=== PATIENT | male | born 1960 | race Caucasian/White ===

== ENCOUNTER 2019-11-30 10:24 | Emergency (ER) | payer BC, SELFPAY ==
[2019-11-30 10:42] VITALS: BP 144/86; PULSE 70; RESP 16; TEMP 36.5; O2SAT 100
--- NOTE | 2019-11-30 10:49 | ED.EYEPROB ---
HPI - Eye Problem General Chief complaint: Eye Problems Stated complaint: left eyelid swollen Time Seen by Provider: 11/30/19 10:49 Source: patient and family Mode of arrival: ambulatory Limitations: no limitations History of Present Illness HPI Narrative: This is a 59 years old male presented office for evaluation of left eyelid swelling for 2-day. He thought there was something in his eye yesterday so he wrapped it and use a Q-tip to try to remove it out but he did not see anything. He woke up this morning noticed his left upper eyelid swelling has gotten a little bigger. Denies visual change, matted eyelashes, or blurry vision. He does not wear contact lense. Denies direct trauma or injury. He is not diabetic. Related Data Allergies Allergy/AdvReac Type Severity Reaction Status Date / Time poison darren extract Allergy Rash Verified 11/30/19 10:54 poison oak extract Allergy Rash Verified 11/30/19 10:54 poison sumac extract Allergy Rash Verified 11/30/19 10:54 Review of Systems Review of Systems: Narrative: CONSTITUTIONAL: Denies fever or feeling ill ENT: Denies congestion. CARDIOVASCULAR: Denies chest pain RESPIRATORY: Denies dyspnea GASTROINTESTINAL: Denies nausea, vomiting SKIN: Denies rash MUSCULOSKELETAL: Denies acute back pain NEUROLOGIC: Denies lightheaded PMFSH Social History Social History Gender identity (if verbalized by the patient): Male Comments At time of signature, I agree with nursing past medical, surgical, social and family history. There is no relevant family history pertinent to the presenting complaint. Exam Narrative: Exam Narrative: GENERAL: This is a well-nourished, well-developed patient, in no apparent distress. EYES: PERRL. EMOI. Sclera clear/white. Left upper corner eyelid noted nodule with tenderness and erythema. No obvious foreign body noted. Vision is grossly intact. NECK: Neck supple, non-tender without lymphadenopathy, masses or thyromegaly. CARDIOVASCULAR: Regular rate and rhythm without murmurs, gallops, or rubs. RESPIRATORY: Clear to auscultation. Breath sounds equal bilaterally. No wheezes, rales, or rhonchi. GASTROINTESTINAL: Abdomen soft, non-tender, nondistended. Bowel sounds are active. No guarding. SKIN: warm, intact with no suspicious lesions or rash, good texture and turgor. NEURO: awake, alert, and oriented to person, place and time. There were no obvious focal neurologic abnormalities. Steady gait [place] Coma Scale Eye Opening: Spontaneous 4 [place] Coma Scale Motor: Obeys Commands 6 [place] Coma Scale Verbal: Oriented 5 Course Vital Signs Vital signs: Vital Signs Temperature 97.7 F 11/30/19 10:42 Pulse Rate 70 11/30/19 10:42 Respiratory Rate 16 11/30/19 10:42 Blood Pressure 144/86 H 11/30/19 10:42 Pulse Oximetry 100 11/30/19 10:42 Temperature 97.7 F 11/30/19 10:42 Pulse Rate 70 11/30/19 10:42 Respiratory Rate 16 11/30/19 10:42 Blood Pressure 144/86 H 11/30/19 10:42 Pulse Oximetry 100 11/30/19 10:42 MDM - Eye Problem MDM Narrative Medical decision making narrative: Discharge instructions reviewed with patient, as well as provided in writing per nursing staff. The instructions also include specific and strict return/GO TO THE ER as well as f/u information. All questions have been answered, and the patient deny any further questions with discharge and discharge plan. Differential Diagnosis Differential diagnosis: Likely corneal abrasion, conjunctivitis, acute iritis and periorbital cellulitis Critical Care Time Critical Care Time Critical Care Time: No Discharge Plan Discharge Clinical Impression: Hordeolum external Qualifiers: Laterality: left Eyelid: upper Qualified Code(s): H00.014 - Hordeolum externum left upper eyelid Patient Disposition: Home, Self-Care Condition: Stable Instructions: Antibiotic Lamar Dewitt (ED) Additional Instruction
== END 2019-11-30 11:03 | disposition home or self-care (01) ==
PROVIDERS: Emergency Provider Nurse Practitioner
DX: H00.014 Hordeolum externum left upper eyelid (principal)
CPT/HCPCS: 99203; G0463

== ENCOUNTER 2020-01-16 08:06 | Emergency (ER) | payer BC, SELFPAY ==
[2020-01-16 08:33] VITALS: BP 131/84; PULSE 64; RESP 16; TEMP 36.3; O2SAT 100
--- NOTE | 2020-01-16 08:59 | ED.SKABFB ---
HPI - Skin/Abscess/Foreign Bdy General Chief complaint: Skin/Abscess/Foreign Body Stated complaint: poison dayanara Time Seen by Provider: 01/16/20 08:56 Source: patient and RN notes reviewed Mode of arrival: ambulatory Limitations: no limitations History of Present Illness HPI narrative: Patient presents today complaining of poison dayanara to the right lower leg x4 days. Reports it does continue to spread. States he has a known area of poison dayanara and was mowing around this area recently. He has been using calamine lotion and hydrocortisone without relief. MD complaint: rash Related Data Allergies Allergy/AdvReac Type Severity Reaction Status Date / Time poison dayanara extract Allergy Rash Verified 01/16/20 08:52 poison oak extract Allergy Rash Verified 01/16/20 08:52 poison sumac extract Allergy Rash Verified 01/16/20 08:52 Review of Systems Review of Systems: Narrative: CONSTITUTIONAL: Denies body aches, fever, chills, or sweats. EYES: Denies visual changes, redness, or discharge. ENT: Denies rhinorrhea, congestion, sore throat, or otalgia. CARDIOVASCULAR: Denies chest pain, palpitations, or edema. RESPIRATORY: Denies cough or dyspnea. GASTROINTESTINAL: Denies abdominal pain, nausea, vomiting, or diarrhea. GENITOURINARY: Denies dysuria or hematuria. SKIN: Denies wounds.+ Pruritic rash MUSCULOSKELETAL: Denies back pain, joint pain, or myalgia. NEUROLOGIC: Denies headache, numbness, tingling, or weakness. PSYCH: Denies depression or anxiety. [facility] Social History Social History Gender identity (if verbalized by the patient): Male Comments At time of signature, I have reviewed and agree with nursing past medical, surgical, social and family history unless otherwise noted. Please see nursing chart for further information. There is no relevant family history pertinent to the presenting complaint Exam Narrative: Exam Narrative: GENERAL: Well-appearing, well-nourished, and in no acute distress. HEAD: Normocephalic, atraumatic. EYES: EOMI. No redness or drainage. Conjunctivae normal. ENT: Mucous membranes pink and moist. NECK: Normal AROM. CHEST: No respiratory distress. EXTREMITIES: Normal range of motion. No edema. SKIN: Warm, dry. Capillary refill normal. Normal skin turgor. Approximately 4 x 4 centimeter area of erythematous vesicles to the distal anterior medial right lower leg. No active drainage. No induration or fluctuance. NEURO: No focal deficits. Alert and oriented x3. Gait steady. PSYCH: Normal affect. No signs of depression or anxiety. Course Vital Signs Vital signs: Vital Signs Temperature 97.3 F L 01/16/20 08:33 Pulse Rate 64 01/16/20 08:33 Respiratory Rate 16 01/16/20 08:33 Blood Pressure 131/84 01/16/20 08:33 Pulse Oximetry 100 01/16/20 08:33 Temperature 97.3 F L 01/16/20 08:33 Pulse Rate 64 01/16/20 08:33 Respiratory Rate 16 01/16/20 08:33 Blood Pressure 131/84 01/16/20 08:33 Pulse Oximetry 100 01/16/20 08:33 Reviewed. Pt has been instructed to follow up with his PCP regarding his elevated blood pressure today. MDM - Skin/Abscess/Foreign Bdy Differential Diagnosis Differential diagnosis: Likely abscess of skin or subcutaneous tissue, urticaria, allergic reaction to drug, cellulitis, eczema, insect bites, impetigo and contact dermatitis Critical Care Time Critical Care Time Critical Care Time: No Discharge Plan Discharge Clinical Impression: Poison dayanara dermatitis Patient Disposition: Home, Self-Care Condition: Stable Instructions: Poison Dayanara (ED) Additional Instructions: Please take the prednisone as directed. You may take an antihistamine such as Benadryl, Claritin, Tessa, Zyrtec for itching. You may also continue the calamine lotion or hydrocortisone. Follow-up with your doctor in 1 week if symptoms are not improving. Your blood pressure was elevated above 120/80 today at [facility]
== END 2020-01-16 09:10 | disposition home or self-care (01) ==
PROVIDERS: Emergency Provider Nurse Practitioner
DX: L23.7 Allergic contact dermatitis due to plants, except food (principal)
CPT/HCPCS: 99213; G0463

== ENCOUNTER 2021-02-05 09:41 | Emergency (ER) | payer BC, SELFPAY ==
[2021-02-05 09:53] VITALS: BP 143/84; PULSE 78; RESP 16; TEMP 36.3; O2SAT 99
--- NOTE | 2021-02-05 10:24 | ED.SKABFB ---
HPI - Skin/Abscess/Foreign Bdy General Chief complaint: Skin/Abscess/Foreign Body Stated complaint: Rash History of Present Illness HPI narrative: This a 60-year-old male comes in complaining of a rash states that he has had since Thursday that he was cutting grass on his right arm and his right torso. Patient denies taking anything for symptoms but they have progressively gotten worse. Patient states that the rash is itchy and started to have boils Related Data Allergies Allergy/AdvReac Type Severity Reaction Status Date / Time poison dayanara extract Allergy Rash Verified 02/05/21 10:24 poison oak extract Allergy Rash Verified 02/05/21 10:24 poison sumac extract Allergy Rash Verified 02/05/21 10:24 Review of Systems Review of Systems: CONSTITUTIONAL: Denies fever, chills, or sweats. EYES: Denies visual changes, redness, or discharge. ENT: Denies rhinorrhea, congestion, sore throat, or otalgia. CARDIOVASCULAR:Denies chest pain, palpitations, or edema. RESPIRATORY: Denies cough or dyspnea. GASTROINTESTINAL: Denies abdominal pain, nausea, vomiting, or diarrhea. GENITOURINARY: Denies dysuria or hematuria. SKIN: Reports rash or itching. MUSCULOSKELETAL:Denies back pain, joint pain, or myalgia. NEUROLOGIC: Denies headache, numbness, or weakness. PSYCHIATRIC:Denies anxiety or depression PMFSH Social History Social History Gender identity (if verbalized by the patient): Male Comments At time as signature, I have reviewed and agree with nursing past medical, social, surgical and family history. Please see nursing chart for further information. There is no relevant family history pertinent to the presenting complaint. Exam Narrative: GENERAL:Well-appearing, well-nourished, and in no acute distress. HEAD:Normocephalic, atraumatic. EYES: PERRLA and EOMI. ENT: Nares clear, no rhinorrhea or epistaxis. Mucous membranes moist. NECK: Supple. CHEST: Clear to auscultation. No respiratory distress. HEART: Regular rate and rhythm. No murmur heard. Normal peripheral pulses. ABDOMEN: Soft, nontender, nondistended, normal active bowel sounds. EXTREMITIES: Normal range of motion. No edema. SKIN: Warm, dry, reports erythema to the right upper arm with small blistering pinpoint rash to the right upper torso rash. NEURO: No focal deficits. Alert and oriented x3. Course Vital Signs Vital signs: Vital Signs Temperature 97.3 F L 02/05/21 09:53 Pulse Rate 78 02/05/21 09:53 Respiratory Rate 16 02/05/21 09:53 Blood Pressure 143/84 H 02/05/21 09:53 Pulse Oximetry 99 02/05/21 09:53 Temperature 97.3 F L 02/05/21 09:53 Pulse Rate 78 02/05/21 09:53 Respiratory Rate 16 02/05/21 09:53 Blood Pressure 143/84 H 02/05/21 09:53 Pulse Oximetry 99 02/05/21 09:53 MDM - Skin/Abscess/Foreign Bdy Differential Diagnosis Differential diagnosis: Likely abscess of skin or subcutaneous tissue, urticaria, allergic reaction to drug, cellulitis, eczema, insect bites and contact dermatitis Discharge Plan Discharge Clinical Impression: Poison sumac Contact dermatitis Qualifiers: Contact dermatitis type: allergic Contact dermatitis trigger: non-food plants Qualified Code(s): L23.7 - Allergic contact dermatitis due to plants, except food Patient Disposition: Home, Self-Care Condition: Stable Instructions: Antibiotic Form, Poison Dayanara (ED), Acute Rash (ED), Hypertension (ED) Additional Instructions: Use skin creams/lotion, such as those containing calamine or pramoxine to reduce itchiness Avoid scratching when possible to prevent worsening of the condition and disruption of the skin that could lead to bacterial infection To relieve itching, place a cool washcloth or some ice over the area that itches, rather than scratching Return to the office or seek ER visit if condition is not improving or worsens with fever, swelling, difficulty breathing or swallowing. Your
== END 2021-02-05 10:38 | disposition home or self-care (01) ==
PROVIDERS: Emergency Provider Nurse Practitioner Family
DX: L23.7 Allergic contact dermatitis due to plants, except food (principal)
CPT/HCPCS: 99213; G0463

== ENCOUNTER 2021-07-17 14:11 | Emergency (ER) | payer OTHER, SELFPAY ==
[2021-07-17 14:24] VITALS: BP 140/104; PULSE 90; RESP 18; TEMP 36.8; O2SAT 95
--- NOTE | 2021-07-17 15:03 | ED.SKABFB ---
HPI - Skin/Abscess/Foreign Bdy General Chief complaint: Skin/Abscess/Foreign Body Stated complaint: rash Time Seen by Provider: 07/17/21 14:54 Source: patient and RN notes reviewed Mode of arrival: ambulatory Limitations: no limitations History of Present Illness HPI narrative: Patient presents today complaint of a rash to his abdomen x1.5 months. States it itches occasionally, especially when he wears a belt. He has been using cortisone cream, triamcinolone leftover from his 's prescription, and hydrogen peroxide. States that over the past couple of days he had not used anything to let it dry out, and it significantly worsened. MD complaint: rash Related Data Allergies Allergy/AdvReac Type Severity Reaction Status Date / Time poison darren extract Allergy Rash Verified 07/17/21 14:34 poison oak extract Allergy Rash Verified 07/17/21 14:34 poison sumac extract Allergy Rash Verified 07/17/21 14:34 Review of Systems Review of Systems: CONSTITUTIONAL: Denies body aches, fever, chills, or sweats. EYES: Denies visual changes, redness, or discharge. ENT: Denies rhinorrhea, congestion, sore throat, or otalgia. CARDIOVASCULAR: Denies chest pain, palpitations, or edema. RESPIRATORY: Denies cough or dyspnea. GASTROINTESTINAL: Denies abdominal pain, nausea, vomiting, or diarrhea. GENITOURINARY: Denies dysuria or hematuria. SKIN: Denieswounds.+ Pruritic rash MUSCULOSKELETAL: Denies back pain, joint pain, or myalgia. NEUROLOGIC: Denies headache, numbness, tingling, or weakness. PSYCH: Denies depression or anxiety. PMFSH Social History Social History Gender identity (if verbalized by the patient): Male Comments At time of signature, I have reviewed and agree with nursing past medical, surgical, social and family history unless otherwise noted. Please see nursing chart for further information. There is no relevant family history pertinent to the presenting complaint Exam Narrative: GENERAL: Well-appearing, well-nourished, and in no acute distress. HEAD: Normocephalic, atraumatic. EYES: EOMI. No redness or drainage. Conjunctivae normal. ENT: Mucous membranes pink and moist. NECK: Normal AROM. CHEST: No respiratory distress. EXTREMITIES: Normal range of motion. No edema. SKIN: Warm, dry.. Capillary refill normal. Normal skin turgor. 11 x 5 cm erythematous papular rash to the midline lower abdomen with some hyperpigmentation around the edges, consistent with tinea NEURO: No focal deficits. Alert and oriented x3. Gait steady. PSYCH: Normal affect. No signs of depression or anxiety. Course Course Level of Care: Express Care Visit Vital Signs Vital signs: Vital Signs Temperature 98.2 F 07/17/21 14:24 Pulse Rate 90 07/17/21 14:24 Respiratory Rate 18 07/17/21 14:24 Blood Pressure 140/104 H 07/17/21 14:24 Pulse Oximetry 95 07/17/21 14:24 Temperature 98.2 F 07/17/21 14:24 Pulse Rate 90 07/17/21 14:24 Respiratory Rate 18 07/17/21 14:24 Blood Pressure 140/104 H 07/17/21 14:24 Pulse Oximetry 95 07/17/21 14:24 Reviewed. Pt has been instructed to follow up with his PCP regarding his elevated blood pressure today. MDM - Skin/Abscess/Foreign Bdy Differential Diagnosis Differential diagnosis: Likely viral exanthem, dermatophytosis, urticaria, herpes zoster, cellulitis, eczema, impetigo and contact dermatitis Critical Care Time Critical Care Time Critical Care Time: No Discharge Plan Discharge Clinical Impression: Tinea corporis Patient Disposition: Home, Self-Care Condition: Stable Instructions: Tinea Corporis (ED) Additional Instructions: Your rash is likely due to ringworm. Please purchase some [id number] clotrimazole cream (Lotrimin). Mix this one-to-one with [id number] hydrocortisone cream and apply twice daily for at least 2 weeks. You may need to treat for 3 to 4 weeks for complete resolution
== END 2021-07-17 15:10 | disposition home or self-care (01) ==
PROVIDERS: Emergency Provider Nurse Practitioner
DX: B35.4 Tinea corporis (principal)
CPT/HCPCS: 99211; G0463

== ENCOUNTER 2023-09-29 07:17 | Emergency (ER) | payer OTHER, SELFPAY ==
--- NOTE | ~2023-09-29 | XR_ITS ---
EXAMINATION: XR lumbar spine min 4V DATE: 09/29/2023 07:47 INDICATION: Left-sided low back pain. Lifting injury. TECHNIQUE: 5 views of lumbar spine were obtained. COMPARISON: None. FINDINGS: There is 5 degrees dextrocurvature of lumbar spine. Vertebral body heights are normal. Ther e is mildly decreased disc height at L2-L3 and L3-L4. There is moderately decreased disc height at L5 -S1. There is multilevel facet joint osteoarthritis, severe at L5-S1. IMPRESSION: 1. Moderate lower lumbar spondylosis. Reviewed, dictated and finalized at location E.
[2023-09-29 07:25] VITALS: BP 157/80; PULSE 70; RESP 16; TEMP 36.6; O2SAT 98
--- NOTE | 2023-09-29 08:00 | ED.BACK ---
HPI - Back Pain/Injury General Chief Complaint: Back Pain/Injury Stated Complaint: back pain Time Seen by Provider: 09/29/23 07:22 Source: patient Mode of arrival: ambulatory History of Present Illness HPI Narrative: 63-year-old otherwise healthy here with complaints of left-sided lower back pain for past few days. Patient states that he was lifting 60 lb bucket at work by end of the day he started having stiffness in his lower back. Patient denies any bladder or bowel incontinence. No previous history of any back injuries of chronic back pain. Denies any tingling numbness down his legs. MD elicited complaint: back pain Onset (ago): day(s) (4) Timing: constant Severity: moderate Similar Symptoms Previously: No Quality: spasming Location: lumbar spine Radiation: none Exacerbating factors: none Context: while lifting Associated symptoms: denies other symptoms Related Data Allergies Allergy/AdvReac Type Severity Reaction Status Date / Time poison darren extract Allergy Rash Verified 07/17/21 14:34 poison oak extract Allergy Rash Verified 07/17/21 14:34 poison sumac extract Allergy Rash Verified 07/17/21 14:34 Review of Systems Review of Systems: All systems reviewed & are unremarkable except as noted in HPI and below Constitutional: Constitutional: Reports no additional constitutional complaints Eyes: Eyes: Reports no additional eye complaints ENT: Reports system reviewed and no additional complaints, except as documented Cardiovascular: Cardiovascular: Reports no additional cardiovascular complaints Respiratory: Respiratory: Reports no additional respiratory complaints Gastrointestinal: Gastrointestinal: Reports no additional gastrointestinal complaints Musculoskeletal: Musculoskeletal: Reports as per HPI Neurologic: Reports system reviewed and no additional complaints, except as documented PMFSH Social History Social History Gender identity (if verbalized by the patient): Male Exam Narrative: GENERAL: Well-appearing, well-nourished, and in no acute distress. HEAD: Normocephalic, atraumatic. EYES: PERRLA and EOMI. ENT: Nares clear, no rhinorrhea or epistaxis. Mucous membranes moist. NECK: Supple. CHEST: Clear to auscultation. No respiratory distress. HEART: Regular rate and rhythm. No murmur heard. Normal peripheral pulses. ABDOMEN: Soft, nontender, nondistended, normal active bowel sounds. EXTREMITIES: Normal range of motion. No edema. Back No vertebral point tenderness SKIN: Warm, dry, no rash. NEURO: No focal deficits. Alert and oriented x3. PSYCH: Normal mood and affect. Course Course Emergency Course: Notified patient about his x-ray findings recommended him to take pain medication muscle relaxers, follow with his primary doctor Vital Signs Vital signs: Vital Signs Temperature 36.6 C 09/29/23 07:25 Pulse Rate 70 09/29/23 07:25 Respiratory Rate 16 09/29/23 07:25 Blood Pressure 157/80 H 09/29/23 07:25 Pulse Oximetry 98 09/29/23 07:25 Oxygen Delivery Room Air 09/29/23 07:25 Temperature 36.6 C 09/29/23 07:25 Pulse Rate 70 09/29/23 07:25 Respiratory Rate 16 09/29/23 07:25 Blood Pressure 157/80 H 09/29/23 07:25 Pulse Oximetry 98 09/29/23 07:25 Oxygen Delivery Room Air 09/29/23 07:25 MDM - Back Pain/Injury Differential Diagnosis Differential diagnosis: Likely lumbar radiculopathy, sciatica and strain of lumbar region Imaging Data Radiologist's impression: ITS Impressions Lumbar Spine X-Ray 09/29/23 07:48 IMPRESSION: 1. Moderate lower lumbar spondylosis. Discharge Plan Discharge Clinical Impression: Strain of lumbar region Patient Disposition: Home, Self-Care Condition: Stable Instructions: Acute Low Back Pain (ED) Prescriptions: New ibuprofen 600 mg tablet 600 mg PO Q6H PRN (Reason: pain) Qty: 30 0RF cyclobenzaprine 5 mg tablet
== END 2023-09-29 09:00 | disposition home or self-care (01) ==
LOC: ANHED 08:13
PROVIDERS: Emergency Provider Family Medicine
DX: S39.012A Strain of muscle, fascia and tendon of lower back, initial encounter (principal); M47.816 Spondylosis without myelopathy or radiculopathy, lumbar region; X50.0XXA Overexertion from strenuous movement or load, initial encounter
CPT/HCPCS: 72110; 99283